=== PATIENT | female | born 1990 | race Native Hawaiian/Other Pacific Islander ===

== ENCOUNTER 2019-04-28 06:30 | Emergency (ER) | payer OTHER ==
[2019-04-28 06:59] VITALS: O2SAT 99
[2019-04-28 07:47] LABS: SQUAMOUS EPITHIAL 3 /hpf (0-5); URINE BILIRUBIN NEGATIVE (NEGATIVE); URINE BLOOD 3+ (NEGATIVE); URINE CLARITY Hazy (Clear); URINE COLOR Yellow (YELLOW); URINE GLUCOSE (UA) NORMAL (Normal); URINE LEUKOCYTE ESTERASE TRACE Leu/uL (Negative); URINE PROTEIN NEGATIVE (NEGATIVE); URINE UROBILINOGEN NORMAL mg/dL (0.2-1.0)
[2019-04-28 07:50] LABS: HCG,QUALITATIVE URINE NEGATIVE (NEGATIVE)
[2019-04-28] MEDS ORDERED: Sodium Chloride 0.9% 1,000 ML IV ONE (08:04)
[2019-04-28] MEDS ORDERED: cefTRIAXone 250 MG, Lidocaine Hydrochloride 1% 1 ML IM ONE (08:05)
[2019-04-28] MEDS ORDERED: Sodium Chloride 0.9% 1,000 ML ONE (08:10)
[2019-04-28 08:56] LABS: BASO # 0.1 K/uL (0.0-0.2); BASO % 0.6 % (0.0-2.0); EOS # 0.1 K/uL (0.0-0.7); EOS % 0.5 % (0.0-4.0); HEMOGLOBIN 14.1 g/dL (11.0-16.0); LYMPH # 2.2 K/uL (1.0-4.3); LYMPH % 22.1 % (20.0-40.0); MEAN CELL VOLUME 85.2 fL (81.0-99.0); MEAN CORPUSCULAR HEMOGLOBIN 29.8 pg (27.0-31.0); MEAN PLATELET VOLUME 8.6 fL (7.2-11.7); MONO # 0.3 K/uL (0.0-0.8); MONO % 2.8 % (0.0-10.0); NEUT # 7.3 K/uL (1.8-7.0); NRBC % 0.1 % (0.0-2.0); RBC 4.73 Mil/uL (3.80-5.20); WHITE BLOOD COUNT 9.8 K/uL (4.8-10.8)
[2019-04-28 09:09] LABS: ALB/GLOB RATIO 1.2 (1.0-2.1); ALBUMIN 4.7 g/dL (3.5-5.0); BLOOD UREA NITROGEN 8 mg/dL (7-17); CALCIUM 9.4 mg/dl (8.6-10.4); GFR NON-AFRICAN AMERICAN > 60
[2019-04-28 09:27] LABS: ALT/SGPT 23 U/L (9-52); AST/SGOT 37 U/L (14-36)
--- NOTE | 2019-04-28 09:28 | C.PDOC ---
History Of Present Illness 29 y/o female pt presents to the ER c/o pelvic and vaginal pain that started yesterday. Associated sx includes dysuria, pink color in her urine and pain radiating to the b/l lower back. Pt denies any prior episodes, fever, vomiting, diarrhea, vaginal discharge, or bleeding. Pt LMP was 03/28 and her period is usually regular. Pt also denies any possibility for or concern for STD. Time Seen by Provider: 04/28/19 07:06 Chief Complaint (Nursing): Female Genitourinary History Per: Patient History/Exam Limitations: no limitations Onset/Duration Of Symptoms: Days (x1) Current Symptoms Are (Timing): Still Present Past Medical History Reviewed: Historical Data, Nursing Documentation, Vital Signs Vital Signs: Last Vital Signs Temp 97.7 F 04/28/19 06:44 Pulse 56 L 04/28/19 06:44 Resp 20 04/28/19 06:44 BP 116/78 04/28/19 06:44 Pulse Ox 99 04/28/19 06:44 Primary Care Provider: FAMILY PROVIDER,NO Family History: States: No Known Family Hx - Social History Hx Alcohol Use: No Hx Substance Use: No Review Of Systems Constitutional: Negative for: Fever Gastrointestinal: Negative for: Vomiting, Diarrhea Genitourinary: Positive for: Dysuria, Pelvic Pain, Other (vaginal pain; pink colored urine). Negative for: Vaginal Discharge, Vaginal Bleeding Musculoskeletal: Positive for: Back Pain (low b/l) Physical Exam - Physical Exam Appears: Non-toxic, Other (uncomfortable) Skin: Warm, Dry Head: Normacephalic Eye(s): bilateral: EOMI Cardiovascular: Rhythm Regular Respiratory: Normal Breath Sounds Gastrointestinal/Abdominal: Soft, Tenderness (suprapubic ), Other ((-) mcburney's) Back: No CVA Tenderness Pelvic: No Vaginal Bleeding, Vaginal Discharge (thick white d/c at cervix), Cervical Motion Tenderness (mild), No Adnexal Tenderness, Other (cervix inflammed; no vesicular lesion or labial swelling ) Neurological/Psych: Oriented x3, Normal Speech ED Course And Treatment - Laboratory Results Result Diagrams: 04/28/19 08:53 04/28/19 08:53 Lab Results: Total Bilirubin 0.7 mg/dL (0.2-1.3) 04/28/19 08:53 AST 37 U/L (14-36) H 04/28/19 08:53 ALT 23 U/L (9-52) 04/28/19 08:53 Alkaline Phosphatase 78 U/L (38-126) 04/28/19 08:53 Total Protein 8.5 g/dL (6.3-8.3) H 04/28/19 08:53 Albumin 4.7 g/dL (3.5-5.0) 04/28/19 08:53 Globulin 3.8 gm/dL (2.2-3.9) 04/28/19 08:53 Albumin/Globulin Ratio 1.2 (1.0-2.1) 04/28/19 08:53 Urine Color Yellow (YELLOW) 04/28/19 07:31 Urine Clarity Hazy (Clear) 04/28/19 07:31 Urine pH 5.0 (5.0-8.0) 04/28/19 07:31 Ur Specific [place] 1.013 (1.003-1.030) 04/28/19 07:31 Urine Protein Negative mg/dL (NEGATIVE) 04/28/19 07:31 Urine Glucose (UA) Normal mg/dL (Normal) 04/28/19 07:31 Urine Ketones Negative mg/dL (NEGATIVE) 04/28/19 07:31 Urine Blood 3+ (NEGATIVE) H 04/28/19 07:31 Urine Nitrate Negative (NEGATIVE) 04/28/19 07:31 Urine Bilirubin Negative (NEGATIVE) 04/28/19 07:31 Urine Urobilinogen Normal mg/dL (0.2-1.0) 04/28/19 07:31 Ur Leukocyte Esterase Trace Vic/uL (Negative) 04/28/19 07:31 Urine WBC (Auto) 6 /hpf (0-5) H 04/28/19 07:31 Urine RBC (Auto) 487 /hpf (0-3) H 04/28/19 07:31 Ur Squamous Epith Cells 3 /hpf (0-5) 04/28/19 07:31 Urine HCG, Qual Negative (NEGATIVE) 04/28/19 07:31 Urine HCG, Qual Negative (NEGATIVE) 04/28/19 07:31 O2 Sat by Pulse Oximetry: 99 (RA) Pulse Ox Interpretation: Normal - CT Scan/US abdomen/pelvis/transvag US Other Rad Studies (CT/US): Read By Radiologist, Radiology Report Reviewed CT/US Interpretation: Accession No. : [id number]. Patient Name / ID : WENDI HUNTER / [id number]. Exam Date : 04/28/2019 09:18:11 ( Approved ). Study Comment : Sex / Age : F / 29Y. Creator : Junior Hooks MD. Dictator : Junior Hooks MD. Clinic Lead : Book Packer : Junior Hooks MD. Approver2 : Report Date : 04/28/2019 11:20:44. My Comment : *. Pelvic ultrasound. History: Pelvic pain. COMPARISON: None available. Technique: Real-time sonography was performed through the pelvis utilizing transabdominal and transvaginal techniques. Findings: Uterus: 7.2 x 3.9 x 5.2 centimeters. Heterogeneous echotexture. Retroverted. Endometrium measures 4.8 millimeters. Cervix measures 2.74 centimeters. No free fluid in the pelvic cul-de-sac. Right ovary: 3.2 x 1.9 x 2.4 centimeters. Normal flow. Left ovary: 3.7 x 2.3 x 2.6 centimeters. Normal flow. Impression: Unremarkable sonographic evaluation of the pelvis. abdomen/pelvis CT Other Rad Studies (CT/US): Read By Radiologist, Radiology Report Reviewed CT/US Interpretation: Accession No. : [id number]. Patient Name / ID : WENDI HUNTER / [id number]. Exam Date : 04/28/2019 10:34:15 ( Approved ). Study Comment : Sex / Age : F / 29Y. Creator : Justine Teixeira. Dictator : Travon Yates MD. Clinic Lead : Book Packer : Travon Yates MD. Approver2 : Report Date : 04/28/2019 10:45:03. My Comment : . Date of service: 04/28/2019. PROCEDURE: CT abdomen and pelvis. HISTORY: PELVIC PAIN, HEMATURIA, R/O KIDNEY STONE. COMPARISON: No prior study available comparison. TECHNIQUE: Contiguous axial images of the abdomen and pelvis performed without oral or intravenous contrast material. Additional 2D sagittal and coronal reformats generated. Radiation dose: Total exam DLP = 306.41 mGy-cm. This CT exam was performed using one or more of the following dose reduction techniques: Automated exposure control, adjustment of the mA and/or kV according to patient size, and/or use of iterative reconstruction technique. FINDINGS: LOWER THORAX: Heart size within range of normal. No significant pericardial effusion. There is a 13.3 x 4.3 mm semi lunar shaped pleural-based density right posterior sulcus which appears to be associated with some vague translucent opacity in the adjacent lung parenchyma that may represent some postinflammatory sequela. Several additional small posterior pleural based densities seen slightly more superior in location. These foci also felt to be postinflammatory. Follow-up nonemergent CT scan of the chest could be performed further evaluation. LIVER: Liver exhibits normal size and attenuation pattern without mass collection or calcification. GALLBLADDER AND BILE DUCTS: Gallbladder physiologically distended. No evidence of intraluminal gallbladder calculi. PANCREAS: Unremarkable. No mass. No ductal dilatation. SPLEEN: Unremarkable. No splenomegaly. ADRENALS: There are no adrenal lesions. KIDNEYS AND URETERS: There are multiple tiny bilateral renal calculi all which appear to be the largest of which appears to be less than 3 mm seen in the upper pole collecting system left kidney. There is mild dilatation of the right renal collecting system right renal pelvis and proximal right ureter; no definitive evidence of obstructing ureteral calculus seen. Rule out recently passed calculus. BLADDER: Urinary bladder is incompletely distended with slight thick-walled appearance; correlation with urinalysis recommended to exclude cystitis. REPRODUCTIVE: The the unremarkable as visualized. APPENDIX: Normal appendix. The. BOWEL: Evaluation of the bowel is limited due to the lack of oral contrast material. Stomach is incompletely distended with slight thick-walled appearance. Visualized loops of small bowel exhibit normal contour and caliber without evidence of acute mechanical small bowel obstruction.. Large bowel appears grossly unremarkable. PERITONEUM: Unremarkable. No fluid collection. No free air. Small fat containing umbilical hernia. LYMPH NODES: Unremarkable. No enlarged lymph nodes. VASCULATURE: Unremarkable. No aortic aneurysm. No aortic atherosclerotic calcification or mural plaque present. BONES: Minimal multilevel degenerative spondylosis of the lower thoracic spine. There also a minor dextroscoliosis centered at the thoracolumbar junction. OTHER FINDINGS: None. IMPRESSION: Multiple tiny bilateral renal calculi with slight dilatation of the are right renal collecting system, right renal pelvis and proximal right ureter however no definitive obstructing ureteral calculus identified. Rule out recently passed calculus. Urinary bladder is incompletely distended with slight thick-walled appearance. Correlation with urinalysis recommended to exclude possibility of a cystitis. Several a small pleural-based nodular densities and what appears represent adjacent parenchymal scarring both posterior sulci. Findings likely represent postinflammatory sequela. Follow-up nonemergent CT scan of the chest could be performed further evaluation. Progress Note: Plans: -- labs. -- pelvic US. -- IV fluids. -- rocephin. -- toradol. 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 UROLOGIST WITHIN 1 WEEK USE MEDICATIONS DIRECTED DRINK PLENTY OF WATER NO SEX X 1 WEEK RETURN TO ER IF SYMPTOMS WORSEN Prescriptions: metroNIDAZOLE [Flagyl] 500 mg PO BID #14 tab Naproxen 375 mg PO BID PRN #20 tablet PRN Reason: pain Tamsulosin [Flomax] 0.4 mg PO DAILY #5 cap Instructions: Kidney Stones (DC) Forms: [employer] (Malay) Print Language: CITIZEN OF [place] - Clinical Impression Clinical Impression: Cervicitis, Kidney stone - Scribe Statement The provider has reviewed the documentation as recorded by the Julito Cook Do Provider Attestation: All medical record entries made by the Scribe were at my direction and personally dictated by me. I have reviewed the chart and agree that the record accurately reflects my personal performance of the history, physical exam, medical decision making, and the department course for this patient. I have also personally directed, reviewed, and agree with the discharge instructions and disposition.
--- NOTE | 2019-04-28 11:08 | CT ---
Date of service: 04/28/2019 PROCEDURE: CT abdomen and pelvis HISTORY: PELVIC PAIN, HEMATURIA, R/O KIDNEY STONE COMPARISON: No prior study available comparison. TECHNIQUE: Contiguous axial images of the abdomen and pelvis performed without oral or intravenous contrast material. Additional 2D sagittal and coronal reformats generated. Radiation dose: Total exam DLP = 306.41 mGy-cm. This CT exam was performed using one or more of the following dose reduction techniques: Automated exposure control, adjustment of the mA and/or kV according to patient size, and/or use of iterative reconstruction technique. FINDINGS: LOWER THORAX: Heart size within range of normal. No significant pericardial effusion. There is a 13.3 x 4.3 mm semi lunar shaped pleural-based density right posterior sulcus which appears to be associated with some vague translucent opacity in the adjacent lung parenchyma that may represent some postinflammatory sequela. Several additional small posterior pleural based densities seen slightly more superior in location. These foci also felt to be postinflammatory. Follow-up nonemergent CT scan of the chest could be performed further evaluation. LIVER: Liver exhibits normal size and attenuation pattern without mass collection or calcification. GALLBLADDER AND BILE DUCTS: Gallbladder physiologically distended. No evidence of intraluminal gallbladder calculi. PANCREAS: Unremarkable. No mass. No ductal dilatation. SPLEEN: Unremarkable. No splenomegaly. ADRENALS: There are no adrenal lesions. KIDNEYS AND URETERS: There are multiple tiny bilateral renal calculi all which appear to be the largest of which appears to be less than 3 mm seen in the upper pole collecting system left kidney. There is mild dilatation of the right renal collecting system right renal pelvis and proximal right ureter; no definitive evidence of obstructing ureteral calculus seen. Rule out recently passed calculus. BLADDER: Urinary bladder is incompletely distended with slight thick-walled appearance; correlation with urinalysis recommended to exclude cystitis. REPRODUCTIVE: The the unremarkable as visualized. APPENDIX: Normal appendix. The BOWEL: Evaluation of the bowel is limited due to the lack of oral contrast material. Stomach is incompletely distended with slight thick-walled appearance. Visualized loops of small bowel exhibit normal contour and caliber without evidence of acute mechanical small bowel obstruction.. Large bowel appears grossly unremarkable. PERITONEUM: Unremarkable. No fluid collection. No free air. Small fat containing umbilical hernia. LYMPH NODES: Unremarkable. No enlarged lymph nodes. VASCULATURE: Unremarkable. No aortic aneurysm. No aortic atherosclerotic calcification or mural plaque present. BONES: Minimal multilevel degenerative spondylosis of the lower thoracic spine. There also a minor dextroscoliosis centered at the thoracolumbar junction. OTHER FINDINGS: None. IMPRESSION: Multiple tiny bilateral renal calculi with slight dilatation of the are right renal collecting system, right renal pelvis and proximal right ureter however no definitive obstructing ureteral calculus identified. Rule out recently passed calculus. Urinary bladder is incompletely distended with slight thick-walled appearance. Correlation with urinalysis recommended to exclude possibility of a cystitis. Several a small pleural-based nodular densities and what appears represent adjacent parenchymal scarring both posterior sulci. Findings likely represent postinflammatory sequela. Follow-up nonemergent CT scan of the chest could be performed further evaluation.
--- NOTE | 2019-04-28 11:24 | US ---
Pelvic ultrasound History: Pelvic pain. COMPARISON: None available. Technique: Real-time sonography was performed through the pelvis utilizing transabdominal and transvaginal techniques. Findings: Uterus: 7.2 x 3.9 x 5.2 centimeters. Heterogeneous echotexture. Retroverted. Endometrium measures 4.8 millimeters. Cervix measures 2.74 centimeters. No free fluid in the pelvic cul-de-sac. Right ovary: 3.2 x 1.9 x 2.4 centimeters. Normal flow. Left ovary: 3.7 x 2.3 x 2.6 centimeters. Normal flow. Impression: Unremarkable sonographic evaluation of the pelvis.
[2019-04-28 11:48] VITALS: BP 97/62; PULSE 54; RESP 18; TEMP 97.8
== END 2019-04-28 11:48 | disposition home or self-care (01) ==
LOC: C.ER 06:30
DX: N72 Inflammatory disease of cervix uteri (principal); N20.0 Calculus of kidney
CPT/HCPCS: 74176; 76830; 76856; 80053; 81001; 81025; 84703; 85025; 87086; 87491; 87591; 96361; 96372; 96374; 99285; J0696; J1885; J7030